=== PATIENT | male | born 1945 | race Caucasian/White ===

== ENCOUNTER 2021-10-24 04:24 | Inpatient (IN) | payer MEDICARE, OTHER ==
[~2021-10-24] VITALS: Ht 188 cm; Wt 98.9 kg
--- NOTE | 2021-10-24 04:35 | NUR ---
TO ER BED 10. BIBPA FROM SNF C/O MORE AMS, TRYING TO ELOPE FROM FACILITY, AND GRESSIVE TOWARDS STAFF. CHANGED INTO GOWN. SITTER WITHIN SIGHT. AWAITING MD CURIEL
--- NOTE | 2021-10-24 04:45 | NUR ---
LAB AT BEDSIDE
--- NOTE | 2021-10-24 04:53 | NUR ---
COVID SWAB COLLECTED AND SENT TO LAB
[2021-10-24 04:55] LABS: BASOPHILS # (AUTO) 0.1 K/uL (0.0-0.2); BASOPHILS % (AUTO) 1.8 % (0.0-2.0); EOSINOPHILS % (AUTO) 7.3 % (0.0-6.0); HEMATOCRIT 38 % (39-51); HEMOGLOBIN 12.4 g/dL (13.5-17.5); LYMPHOCYTES # (AUTO) 2.1 K/uL (0.8-4.8); LYMPHOCYTES % (AUTO) 37.9 % (20.0-44.0); MEAN CORPUSCULAR HGB CONC 33 g/dl (31.0-36.0); MEAN CORPUSCULAR VOLUME 84 fL (80-96); MONOCYTES # (AUTO) 0.4 K/uL (0.1-1.30); MONOCYTES % (AUTO) 8.1 % (2.0-12.0); NEUTROPHILS # (AUTO) 2.5 K/uL (1.8-8.9); NEUTROPHILS % (AUTO) 44.9 % (43.0-81.0); PLATELET COUNT (AUTO) 203 K/uL (150-450); WHITE BLOOD COUNT (AUTO) 5.5 K/uL (4.3-11.0)
[2021-10-24 05:04] LABS: CALCIUM, SERUM 9.4 mg/dL (8.5-10.1); CARBON DIOXIDE 28 mmol/L (21-32); CHLORIDE 104 mmol/L (98-107); CREATININE 1.6 mg/dL (0.6-1.3); GLUCOSE 82 mg/dL (74-106); POTASSIUM 3.4 mmol/L (3.5-5.1); SODIUM SERUM 140 mmol/L (136-145); UREA NITROGEN, BLOOD 24 mg/dL (7-18)
[2021-10-24 05:10] LABS: ALANINE AMINOTRANSFERASE 20 U/L (12-78); ALBUMIN 3.4 g/dL (3.4-5.0); ALCOHOL, BLOOD < 3 mg/dL (0-0); ALKALINE PHOSPHATASE 60 U/L (46-116); ASPARTATE AMINOTRANSFERASE 12 U/L (15-37); BILIRUBIN,DIRECT 0.2 mg/dL (0.0-0.2); BILIRUBIN,TOTAL 0.7 mg/dL (0.2-1.0); TOTAL PROTEIN, SERUM 6.7 g/dL (6.4-8.2)
[2021-10-24 05:11] LABS: ACETAMINOPHEN 0 ug/ml (10-30)
--- NOTE | 2021-10-24 05:29 | NUR ---
URINAL PROVIDED TO PT
--- NOTE | 2021-10-24 05:36 | NUR ---
URINE SAMPLE COLLECTED AND SENT TO LAB
[2021-10-24 06:19] LABS: BILIRUBIN,URINE NEGATIVE (NEGATIVE); COLOR,URINE YELLOW (YELLOW); LEUKOCYTE ESTERASE ,URINE NEGATIVE (NEGATIVE); NITRITE, URINE NEGATIVE (NEGATIVE); PROTEIN,URINE NEGATIVE (NEGATIVE); UGLUCOSE NEGATIVE (NEGATIVE); UROBILINOGEN,URINE 0.2 EU/dL (0.2)
[2021-10-24] MEDS ORDERED: OLANZAPINE 10 MG VIAL IM ONE ×4 (06:25→14:28)
--- NOTE | 2021-10-24 06:33 | NUR ---
PT GOT OUT OF BED AND WAS ATTEMPTING TO LEAVE. PT GOT AGGRESSIVE AND STRIKED AT NURSE WHEN TRYING TO HELP HIM BACK IN BED. PT NOW RESTING IN BED. V/S STABLE. MADE AWARE
--- NOTE | 2021-10-24 09:33 | NUR ---
CALLED PSYCH CLINICIAN RAINE REGARDING PT
--- NOTE | 2021-10-24 10:09 | NUR ---
SS Note: SS consult for pt. who comes from facility after attempting to elope and becoming aggressive with staff per EMR. The pt. is a 76 year old male who comes from [facility] [[address] , [place] [address] ]. SW met with pt. bedside. Pt. is alert & oriented x 1 (self) and confused. Pt. is irritable, and was compliant with questions. Pt. stated he believes he lives in his apartment and stated he is from his , Jaxson Cannon [phone] and wants to go home. Applications Systems Analyst, [employer] [phone] was notified to evaluate this patient. SW will be available as needed.
--- NOTE | 2021-10-24 10:36 | NUR ---
RAINE CALLED REGARDING PT AND WAS NOTIFIED OF PT STATUS. ALSO PT WILL BE SEEN ONCE LAMINATION OPERATOR IS FINISHED WITH "FIRE SAFETY CLASS"
--- NOTE | 2021-10-24 12:30 | NUR ---
CALL BACK FROM Marjorie JOEL LCSW, COMING TO SEE PATIENT
--- NOTE | 2021-10-24 14:00 | NUR ---
RN-ADMISSION NOTES ADMITTED 76 Y.O MALE PATIENT FROM [facility] ER. PATIENT IS UNDER THE CARE OF DR. ARREAGA ( PSYCHIATRIST) DR. OHARA ( MUSIC THERAPIST) BOTH MD MADE AWARE OF THE ADMISSION. PATIENT ARRIVED IN THE UNIT VIA HOSPITAL BED ACCOMPANIED BY TWO TWO ER STAFF. PATIENT IS AWAKE,A/O X1,GUARDED. UPON FACE TO FACE ASSESSMENT WITH THE PATIENT ,PATIENT IS CONFUSED POOR HISTORIAN UNABLE TO GIVE INFORMATIONS AND UNABLE TO FOCUS ON CONVERSATIONS,SOME INFORMATIONS WAS OBTAINED FROM MEDICAL RECORDS FROM THE FACILITY AND FAMILY. PATIENT REFUSED SKIN ASSESSMENT AND FACE PHOTO TAKEN . PATIENT NEEDS MINIMAL ASSIST WITH ADL'S . PATIENT ON 5250 HOLD FOR DTO AND GD. PER HOLD PATIENT ELOPE THE FACILITY AND AGGRESSIVE TO THE STAFF AT THE FACILITY . PATIENT'S RIGHT BOOKLET WAS GIVEN TO THE PATIENT.ANDRES TORRES [phone] ( [place]) MADE AWARE ON THE ADMISSION.ALL NEEDS ATTENDED AND ANTICIPATED. WILL CONT. MONITORING FOR SAFETY AND BEHAVIOR. Addendum: 10/24/21 at 1914 by KELLY SLOAN RN EXACT ADMISSION TIME PATIENT ARRIVED IN THE UNIT WAS 1445.
[2021-10-24] MEDS ORDERED: BUPR150T10 PO (14:15)
[2021-10-24] MEDS ORDERED: ASCO500C17 PO (14:15)
[2021-10-24] MEDS ORDERED: MAGN400O6 PO (14:15)
[2021-10-24] MEDS ORDERED: FAMO20TA80 PO (14:15)
[2021-10-24] MEDS ORDERED: BISA10SU11 RC (14:15)
[2021-10-24] MEDS ORDERED: POLY17PO4 PO (14:15)
[2021-10-24] MEDS ORDERED: DOCU-141 PO (14:15)
[2021-10-24] MEDS ORDERED: MULT-447 PO (14:15)
[2021-10-24] MEDS ORDERED: NA P133E RC (14:15)
[2021-10-24] MEDS ORDERED: TAMS-12 PO (14:15)
[2021-10-24] MEDS ORDERED: BACL10TA PO (14:15)
[2021-10-24] MEDS ORDERED: BENZ2AMP PO (14:15)
[2021-10-24] MEDS ORDERED: ACET325T53 PO (14:15)
[2021-10-24] MEDS ORDERED: POTA10TA21 PO (14:15)
[2021-10-24] MEDS ORDERED: SENN-175 PO (14:15)
[2021-10-24] MEDS ORDERED: APIX5TAB PO (14:15)
[2021-10-24] MEDS ORDERED: FURO-144 PO (14:15)
[2021-10-24] MEDS ORDERED: METO25TA6 PO (14:15)
--- NOTE | 2021-10-24 14:45 | NUR ---
TRANSFERRED TO GPS BED 212 IN STABLE CONDITION
--- NOTE | 2021-10-24 14:52 | NUR ---
REPORT GIVEN TO NURSE HERNÁNDEZ FOR DORYS
[2021-10-24] MEDS ORDERED: ACETAMINOPHEN 325 MG TABLET PO PRN (15:00)
[2021-10-24] MEDS ORDERED: MAG HYDROX/AL HYDROX/SIMETH 30 ML UDC PO PRN (15:00)
[2021-10-24] MEDS ORDERED: MAGNESIUM HYDROXIDE 30 ML UDC PO PRN ×2 (15:00→23:30)
[2021-10-24] MEDS ORDERED: BLOOD SUGAR DIAGNOSTIC 1 EACH STRIP IN ONE (15:00)
[2021-10-24 16:00] VITALS: BP 145/83
--- NOTE | 2021-10-24 19:15 | NUR ---
RN notes Received Pt from morning nurse. Pt is sitting at the bedside comfortably. Pt is alert and orientedX1,anxious,confused, uncooperative and unable to focus on conversation. On room air. No SOB. No S/s of distress noted. Snacks is provided. Reality orientation is provided. Safety precautions is maintained all the time. Will continue to monitor for behavior and safety and continue to monitor Q 15 mins checks per hospital protocol.
[2021-10-24 20:13] VITALS: BP 129/66
[2021-10-24] MEDS: LORAZEPAM 0.5 MG TABLET PO PRN (21:01)
--- NOTE | 2021-10-24 21:05 | NUR ---
RN notes Pt is feeling anxious. Administered ativan 1mg/1 tab/po/prn as ordered for anxiety. VS is stable. safety precautions is maintained all the time. will continue to monitor.
[2021-10-24] MEDS ORDERED: ZOLPIDEM TARTRATE 5 MG TABLET PO PRN (21:30)
[2021-10-24] MEDS: risperiDONE 1 MG TABLET PO SCH (21:30)
--- NOTE | 2021-10-24 21:32 | NUR ---
GPS RN NOTE, PATIENT NEEDS A MEDICATION RECONCILIATION. PAGED [facility] AND INFORMED DR MIRA GONZALES OF MY FINDINGS. DR MIRA GONZALES STATED, " OK I WILL DO IT WHEN I HAVE A MOMENT. ALL ORDERS NOTED AND CARRIED OUT. WILL CONTINUE TO MONITOR THIS PATIENT WITH THE HELP OF STAFF.
--- NOTE | 2021-10-24 21:51 | NUR ---
RN notes Pt refused risperdal med despites explained risks and benefits. returned med to [facility]. charge nurse is aware and informed. will continue to monitor.
--- NOTE | 2021-10-24 22:10 | NUR ---
GPS RN NOTE, PATIENT DELUSIONAL STATING, " YOU KILLED MY AND YOU DESERVE TO ". PATIENT PUSHED WALKER TOWARD STAFF IN A THREATENING MANOR. PATIENT ASSISTED TO A SENDY CHAIR WITH THE HELP OF STAFF. PATIENT REDIRECTED AGAIN AND GIVEN APPLE JUICE. WILL CONTINUE TO MONITOR THIS PATIENT WITH THE HELP OF STAFF.
[2021-10-24] MEDS ORDERED: BISACODYL SUPP (10 MG) 10 MG/SUPP.RECT SUPP.RECT RC PRN (23:30)
[2021-10-24] MEDS ORDERED: NA PHOS,M-B/NA PHOS,DI-BA 1 EA ENEMA RC PRN (23:30)
--- NOTE | 2021-10-25 00:07 | NUR ---
GPS RN NOTE, PATIENT IS CONFUSED, INCOHERENT, DELUSIONAL, AGITATED, AGGRESSIVE, YELLING, AND STRIKING OUT AT STAFF. LESS RESTRICTIVE MEASURES ATTEMPTED IE DIVERSION, 1 TO 1 INTERACTION, AND REORIENTATION WAS TRIED WITH NO POSITIVE EFFECT. PAGED DR ARREAGA AND INFORMED HIM OF MY FINDINGS. DR ARREAGA ORDERED HALDOL 5MG IM ONCE, ATIVAN 1MG IM ONCE, AND BENADRYL 25MG IM ONCE . GIVEN AFOREMENTIONED MEDICATION IN HER RIGHT VENTROGLUTEAL WITH THE HELP OF STAFF AND SECURITY. PATIENT TOLERATE PROCEDURE WELL. ALL ORDERS NOTED AND CARRIED OUT WILL CONTINUE TO MONITOR THE PATIENT.
[2021-10-25] MEDS ORDERED: LORAZEPAM INJ 2 MG/ML VIAL IM ONE (00:30)
[2021-10-25] MEDS ORDERED: diphenhydrAMINE HCL 50 MG/ML VIAL IM ONE (00:30)
[2021-10-25] MEDS ORDERED: HALOPERIDOL LACTATE INJ 5 MG/ML VIAL IM ONE (00:30)
[2021-10-25 08:00] VITALS: BP 136/79
[2021-10-25] MEDS: POLYETHYLENE GLYCOL 3350 17 GM POWD.PACK PO SCH ×2 (09:00→17:00)
[2021-10-25] MEDS: FAMOTIDINE (20 MG) 20 MG TABLET PO SCH (09:00)
[2021-10-25] MEDS: RIVASTIGMINE TARTRATE 1.5 MG CAPSULE PO SCH ×2 (09:00→17:24)
[2021-10-25] MEDS: DOCUSATE SODIUM 100 MG CAPSULE PO SCH ×2 (09:00→17:24)
[2021-10-25] MEDS: MULTIVITAMINS,THERAGRAN 1 UDTAB TABLET PO SCH (09:00)
[2021-10-25] MEDS: METOPROLOL TARTRATE 25 MG TABLET PO SCH ×2 (09:00→21:22)
[2021-10-25] MEDS: APIXABAN 5 MG TABLET PO SCH ×2 (09:00→17:29)
[2021-10-25] MEDS: BACLOFEN (10 MG) 10 MG TABLET PO SCH ×2 (09:00→17:24)
[2021-10-25] MEDS: risperiDONE 1 MG TABLET PO SCH ×2 (09:00→21:22)
[2021-10-25] MEDS: FUROSEMIDE 40 MG TABLET PO SCH (09:00)
[2021-10-25 12:41] LABS: ALANINE AMINOTRANSFERASE 17 U/L (12-78); ALBUMIN 3.3 g/dL (3.4-5.0); ALKALINE PHOSPHATASE 52 U/L (46-116); ASPARTATE AMINOTRANSFERASE 15 U/L (15-37); BILIRUBIN,TOTAL 0.8 mg/dL (0.2-1.0); CARBON DIOXIDE 27 mmol/L (21-32); CHLORIDE 105 mmol/L (98-107); CREATININE 1.6 mg/dL (0.6-1.3); GLUCOSE 86 mg/dL (74-106); POTASSIUM 3.2 mmol/L (3.5-5.1); SODIUM SERUM 140 mmol/L (136-145); TOTAL PROTEIN, SERUM 6.4 g/dL (6.4-8.2); UREA NITROGEN, BLOOD 22 mg/dL (7-18)
[2021-10-25 12:42] LABS: CHOLESTEROL 143 mg/dL (<200); HDL CHOLESTEROL 37 mg/dL (40-60); LDL 91 mg/dL (0-99); TRIGLYCERIDES 87 mg/dL (30-150)
--- NOTE | 2021-10-25 13:40 | NUR ---
GPS/RN PT IS SLEEPING NO ACUTE DISTRESS NOTED. HARD TO AROUSE. FEW ATTEMPTS MADE TO AWAKE AND TO MEDICATE. PT BREATHING IS EVEN AND UNLABORED. WILL CONTINUE TO MONITOR.
[2021-10-25 16:00] VITALS: BP 137/70
--- NOTE | 2021-10-25 16:15 | NUR ---
GPS/RN PT JUST WOKE UP . HAS NO RECOLLECTIONS OF PRIOR EVENTS. FOOD, APPLE JUICE OFFERED. PT IS AMBULATORY IN NO DISTRESS
--- NOTE | 2021-10-25 19:24 | NUR ---
GPS RN NOTE, RECEIVED PATIENT AWAKE AND IN BED, NO S/S OR COMPLAINTS OF PAIN AT THIS TIME. PATIENT IS DISPLAYING NO S/S OF APPARENT DISTRESS AT THIS TIME. PATIENT BREATHING IS UNLABORED WITH EQUAL RISE AND FALL OF THE CHEST. PATIENT IS ALERT AND ORIENTED X 1 ON ROOM AIR WITH A SPO2 94%. PATIENT IS COMPLIANT WITH MEDICATIONS, ANXIOUS, PARANOID, EASILY IRRITABLE, NEEDS REDIRECTION, DELUSIONAL, AND UNCOOPERATIVE. PATIENT DENIES SUICIDAL AND HOMICIDAL IDEATIONS AT THIS TIME. PATIENT ASSISTED WITH TURNING AND REPOSITIONING Q2HR AND PRN FOR COMFORT AND CIRCULATION. PATIENT HAS NO NEEDS AT THIS TIME. PATIENT EDUCATED ON THE USE OF THE CALL JENNINGS. PATIENT BED SIDE RAILS UP X 2 FOR SAFETY. PATIENT BED IS LOCKED, LOW, WITH BED ALARM ON. WILL CONTINUE TO MONITOR THIS PATIENT Q15 MINUTES WITH THE HELP OF STAFF TO MAINTAIN SAFETY.
[2021-10-25 20:16] VITALS: BP_SYST 109; BP_SYST 137; BP_DIAS 60; BP_DIAS 78
[2021-10-25] MEDS: TAMSULOSIN 0.4 MG CAP.SR.24H PO SCH (21:21)
[2021-10-25] MEDS: SENNOSIDES 8.6 MG TABLET PO SCH (21:22)
[2021-10-25] MEDS: ZOLPIDEM TARTRATE 5 MG TABLET PO PRN (21:23)
--- NOTE | 2021-10-25 21:23 | NUR ---
GPS RN NOTE, PATIENT HAS A COMPLAINT OF NOT BEING ABLE TO SLEEP AND IS REQUESTING AMBIEN AT THIS TIME. PATIENT VITAL SIGNS ARE STABLE. GAVE AMBIEN 5MG PO HS PRN ORDERED. WILL REASSESS FOR INSOMNIA AND I WILL CONTINUE TO MONITOR THIS PATIENT WITH THE HELP OF STAFF.
[2021-10-26] MEDS: LORAZEPAM 0.5 MG TABLET PO PRN (06:36)
--- NOTE | 2021-10-26 06:36 | NUR ---
GPS RN NOTE, PATIENT HAS A COMPLAINT OF FEELING ANXIOUS AND IS REQUESTING ATIVAN AT THIS TIME. PATIENT VITAL SIGNS ARE STABLE. GAVE ATIVAN 1MG PO Q4HR PRN ORDERED. WILL REASSESS ANXIETY AND I WILL CONTINUE TO MONITOR THIS PATIENT WITH THE HELP OF STAFF.
[2021-10-26 08:00] VITALS: BP 124/74
[2021-10-26] MEDS: FAMOTIDINE (20 MG) 20 MG TABLET PO SCH (09:12)
[2021-10-26] MEDS: POLYETHYLENE GLYCOL 3350 17 GM POWD.PACK PO SCH ×2 (09:12→17:53)
[2021-10-26] MEDS: RIVASTIGMINE TARTRATE 1.5 MG CAPSULE PO SCH ×2 (09:12→17:53)
[2021-10-26] MEDS: DOCUSATE SODIUM 100 MG CAPSULE PO SCH ×2 (09:12→17:55)
[2021-10-26] MEDS: APIXABAN 5 MG TABLET PO SCH ×2 (09:13→17:54)
[2021-10-26] MEDS: MULTIVITAMINS,THERAGRAN 1 UDTAB TABLET PO SCH (09:14)
[2021-10-26] MEDS: risperiDONE 1 MG TABLET PO SCH ×2 (09:15→20:54)
[2021-10-26] MEDS: FUROSEMIDE 40 MG TABLET PO SCH (09:15)
[2021-10-26] MEDS: METOPROLOL TARTRATE 25 MG TABLET PO SCH ×2 (09:15→20:54)
[2021-10-26] MEDS: BACLOFEN (10 MG) 10 MG TABLET PO SCH ×2 (09:16→17:54)
[2021-10-26 16:00] VITALS: BP 132/72
--- NOTE | 2021-10-26 19:25 | NUR ---
GPS RN NOTES RECEIVED PATIENT IN THE DINING ROOM SITTING IN A CHAIR. ALERT AND ORIENTED X1, NO S/S OF ACUTE DISTRESS NOTED. PATIENT REMAINS CONFUSED, ANXIOUS, RESTLESS, COOPERATIVE TO CARE, MED COMPLIANT. REORIENTATION PROVIDED. NO AGITATION NOTED. SAFETY PRECAUTIONS IN PLACE. WILL CONTINUE TO MONITOR Q15MIN ROUNDS FOR SAFETY AND BEHAVIOR.
--- NOTE | 2021-10-26 20:00 | NUR ---
GPS RN NOTES PATIENT REFUSED WEEKLY SKIN BODY ASSESSMENT.
[2021-10-26 20:49] VITALS: BP 125/75
[2021-10-26] MEDS: SENNOSIDES 8.6 MG TABLET PO SCH (21:01)
[2021-10-26] MEDS: TAMSULOSIN 0.4 MG CAP.SR.24H PO SCH (21:01)
[2021-10-26] MEDS: ZOLPIDEM TARTRATE 5 MG TABLET PO PRN ×2 (22:06→22:59)
[2021-10-27 08:00] VITALS: BP 142/69
[2021-10-27] MEDS: FUROSEMIDE 40 MG TABLET PO SCH (08:06)
[2021-10-27] MEDS: RIVASTIGMINE TARTRATE 1.5 MG CAPSULE PO SCH ×2 (08:06→17:13)
[2021-10-27] MEDS: risperiDONE 1 MG TABLET PO SCH ×2 (08:06→21:17)
[2021-10-27] MEDS: DOCUSATE SODIUM 100 MG CAPSULE PO SCH ×2 (08:06→17:13)
[2021-10-27] MEDS: POLYETHYLENE GLYCOL 3350 17 GM POWD.PACK PO SCH ×2 (08:07→17:13)
[2021-10-27] MEDS: MULTIVITAMINS,THERAGRAN 1 UDTAB TABLET PO SCH (08:07)
[2021-10-27] MEDS: BACLOFEN (10 MG) 10 MG TABLET PO SCH ×2 (08:07→17:13)
[2021-10-27] MEDS: METOPROLOL TARTRATE 25 MG TABLET PO SCH ×2 (08:08→21:18)
[2021-10-27] MEDS: APIXABAN 5 MG TABLET PO SCH ×2 (08:27→17:22)
[2021-10-27] MEDS: LORAZEPAM 0.5 MG TABLET PO PRN (08:52)
--- NOTE | 2021-10-27 09:25 | NUR ---
PIEDAD Initial Discharge: Pt currently resides at [facility] [address] [place], [place]; ([phone]). PIEDAD reached out to Nicole Smyther if pt can return back or not. Nicole will let this commercial lines underwriter know if pt can return back or not. PIEDAD will work with the MD and treatment team to help coordinate appropriate dc.
--- NOTE | 2021-10-27 09:25 | NUR ---
PIEDAD Admit Source: Pt placed on a 5150 hold for danger to others and GD. Pt from [facility]. He was aggressive at his facility. Pt currently resides at [address]; ([phone]). PIEDAD reached out to Nicole Video Game Producer if pt can return back or not. Nicole will let this com writer know if pt can return back or not.
--- NOTE | 2021-10-27 10:41 | NUR ---
SNF Contact: SW received a call back from Nicole turner ([phone]) who stated they cannot accept pt back because staff is unable to take care of pt.
[2021-10-27] MEDS: FAMOTIDINE (20 MG) 20 MG TABLET PO SCH (10:47)
--- NOTE | 2021-10-27 11:16 | NUR ---
PIEDAD Family Contact: SW contacted pt's ex- Caitlyn ([phone]) to discuss discharge and treatment plan. stated that she is the DPOA and the daughter Amber ([phone]). She stated she will send the DPOA paperworks. PIEDAD notified that [facility] is not able to take pt back. She was agreeable of this scientific writer to find pt a placement.
[2021-10-27] MEDS: POTASSIUM CHLORIDE 20 MEQ TAB.PRT.SR PO SCH (12:38)
[2021-10-27 16:00] VITALS: BP 132/73
--- NOTE | 2021-10-27 19:07 | NUR ---
RN NOTES RECEIVED PATIENT IN [address] IN A SENDY - CHAIR. ALERT AND ORIENTED X1, NO SOB NOTED, NO S/S OF ACUTE DISTRESS NOTED. PATIENT REMAINS CONFUSED, ANXIOUS, RESTLESS, COOPERATIVE TO CARE, MEDICATION COMPLIANT. RE-ORIENTATION PROVIDED. AGITATION NOTED DURING BRIEF CHANGES AND DARRELL CARE, OTHER THAN THOSE TIMES PT WAS REDIRECTED AND EASILY CALMED DOWN FROM ANXIETY AND AGITATION, ATE MEALS WITH SOME ASSISTANCE, SAFETY PRECAUTIONS IN PLACE. WILL CONTINUE TO MONITOR Q15MIN ROUNDS FOR SAFETY AND BEHAVIOR.
[2021-10-27 19:46] VITALS: BP 129/69
[2021-10-27] MEDS: TAMSULOSIN 0.4 MG CAP.SR.24H PO SCH (21:17)
[2021-10-27] MEDS: SENNOSIDES 8.6 MG TABLET PO SCH (21:18)
[2021-10-27] MEDS: ZOLPIDEM TARTRATE 5 MG TABLET PO PRN (23:52)
[2021-10-28] MEDS: LORAZEPAM 0.5 MG TABLET PO PRN (02:37)
[2021-10-28 06:55] LABS: BASOPHILS # (AUTO) 0.1 K/uL (0.0-0.2); BASOPHILS % (AUTO) 0.9 % (0.0-2.0); HEMATOCRIT 40 % (39-51); HEMOGLOBIN 12.9 g/dL (13.5-17.5); LYMPHOCYTES # (AUTO) 1.1 K/uL (0.8-4.8); LYMPHOCYTES % (AUTO) 18.2 % (20.0-44.0); MEAN CORPUSCULAR HGB CONC 32 g/dl (31.0-36.0); MEAN CORPUSCULAR VOLUME 85 fL (80-96); MONOCYTES # (AUTO) 0.5 K/uL (0.1-1.30); MONOCYTES % (AUTO) 8.5 % (2.0-12.0); NEUTROPHILS # (AUTO) 4.1 K/uL (1.8-8.9); NEUTROPHILS % (AUTO) 67.4 % (43.0-81.0); PLATELET COUNT (AUTO) 229 K/uL (150-450); RED BLOOD CELL COUNT(AUTO) 4.72 MIL/uL (4.5-6.0); WHITE BLOOD COUNT (AUTO) 6.1 K/uL (4.3-11.0)
[2021-10-28 07:16] LABS: CALCIUM, SERUM 9.8 mg/dL (8.5-10.1); CARBON DIOXIDE 26 mmol/L (21-32); CHLORIDE 101 mmol/L (98-107); CREATININE 1.6 mg/dL (0.6-1.3); GLUCOSE 104 mg/dL (74-106); MAGNESIUM 2.4 mg/dL (1.8-2.4); PHOSPHORUS 3.9 mg/dL (2.5-4.9); SODIUM SERUM 139 mmol/L (136-145); UREA NITROGEN, BLOOD 23 mg/dL (7-18)
[2021-10-28 08:00] VITALS: BP 144/76
[2021-10-28] MEDS: FAMOTIDINE (20 MG) 20 MG TABLET PO SCH (08:30)
[2021-10-28] MEDS: DOCUSATE SODIUM 100 MG CAPSULE PO SCH ×2 (08:30→16:47)
[2021-10-28] MEDS: POTASSIUM CHLORIDE 20 MEQ TAB.PRT.SR PO SCH (08:30)
[2021-10-28] MEDS: METOPROLOL TARTRATE 25 MG TABLET PO SCH ×2 (08:31→21:21)
[2021-10-28] MEDS: MULTIVITAMINS,THERAGRAN 1 UDTAB TABLET PO SCH (08:31)
[2021-10-28] MEDS: risperiDONE 1 MG TABLET PO SCH ×2 (08:31→21:20)
[2021-10-28] MEDS: FUROSEMIDE 40 MG TABLET PO SCH (08:31)
[2021-10-28] MEDS: RIVASTIGMINE TARTRATE 1.5 MG CAPSULE PO SCH ×2 (08:31→16:47)
[2021-10-28] MEDS: POLYETHYLENE GLYCOL 3350 17 GM POWD.PACK PO SCH ×2 (08:32→16:46)
[2021-10-28] MEDS: BACLOFEN (10 MG) 10 MG TABLET PO SCH ×2 (08:32→16:47)
[2021-10-28] MEDS: APIXABAN 5 MG TABLET PO SCH ×2 (08:33→16:47)
--- NOTE | 2021-10-28 12:27 | NUR ---
RN-CO: Patient is asleep, respiration even and unlabored. Skin warm and dry to touch. Lips are pink and moist.I will continue to monitor.
--- NOTE | 2021-10-28 13:39 | NUR ---
RN-CO: Patient is asleep, respiration even and unlabored. Skin warm and dry to touch. Lips are pink and moist.I will continue to monitor. Ativan was given by night guardnight filler at 0239 am and Ambien was given at 1237 am.
[2021-10-28 16:00] VITALS: BP 132/75
--- NOTE | 2021-10-28 19:29 | NUR ---
GPS RN OPENING NOTES: RECEIVED PATIENT IN HALLWAY SITTING IN SENDY CHAIR FOR SAFETY, AWAKE, A/O X1. BLUNTED AFFECT, DISORGANIZED, CONFUSED, PASSIVE, CALM. NO S/S OF DISTRESS. RESPIRATION EVEN AND UNLABORED WITH EQUAL RISE AND FALL OF THE CHEST, ON ROOM AIR. OFFERED FLUID AND SNACKS TOLERATED. WILL CONTINUE TO MONITOR Q15 FOR MOOD, SAFETY AND BEHAVIOR.
[2021-10-28 19:39] VITALS: BP 137/70
[2021-10-28] MEDS: TAMSULOSIN 0.4 MG CAP.SR.24H PO SCH (21:20)
[2021-10-28] MEDS: SENNOSIDES 8.6 MG TABLET PO SCH (21:22)
--- NOTE | 2021-10-28 21:33 | NUR ---
GPS RN NOTES: RISPERDAL 0.5MG WASTED PER PARTIAL DOSE ORDER. PATIENT IS COMPLIANT WITH ALL MEDICATIONS THIS SHIFT.
[2021-10-28] MEDS: ZOLPIDEM TARTRATE 5 MG TABLET PO PRN (22:30)
--- NOTE | 2021-10-28 22:35 | NUR ---
GPS RN NOTES: AMBIEN 5MG GIVEN PO FOR SLEEP AT 2230. WILL CONTINUE TO MONITOR.
[2021-10-29] MEDS: LORAZEPAM 0.5 MG TABLET PO PRN ×3 (03:57→21:00)
--- NOTE | 2021-10-29 04:04 | NUR ---
GPS RN NOTES: Patient is restless and anxious. Ativan 1mg given PO at 0357. Will continue to monitor.
--- NOTE | 2021-10-29 06:59 | NUR ---
GPS RN CLOSING NOTES: PATIENT IS AWAKE, A/O X1. PATIENT SLEPT 4HRS THIS SHIFT. NO S/S OF DISTRESS NOTED. RESPIRATION EVEN AND UNLABORED WITH EQUAL RISE AND FALL OF THE CHEST, ON ROOM AIR. ALL PATIENT CARE NEEDS HAVE BEEN MET ANTICIPATED. BED IN LOW LOCKED POSITION, SIDE RAILS UP X2 FOR SAFETY. CALL JENNINGS WITHIN REACH. WILL CONTINUE TO MONITOR AND ENDORSE TO AM SHIFT.
[2021-10-29 08:00] VITALS: BP 119/55
[2021-10-29] MEDS: FAMOTIDINE (20 MG) 20 MG TABLET PO SCH (08:39)
[2021-10-29] MEDS: risperiDONE 1 MG TABLET PO SCH ×2 (08:39→21:49)
[2021-10-29] MEDS: POLYETHYLENE GLYCOL 3350 17 GM POWD.PACK PO SCH ×2 (08:39→16:15)
[2021-10-29] MEDS: RIVASTIGMINE TARTRATE 1.5 MG CAPSULE PO SCH ×2 (08:39→16:16)
[2021-10-29] MEDS: MULTIVITAMINS,THERAGRAN 1 UDTAB TABLET PO SCH (08:39)
[2021-10-29] MEDS: FUROSEMIDE 40 MG TABLET PO SCH (08:39)
[2021-10-29] MEDS: DOCUSATE SODIUM 100 MG CAPSULE PO SCH ×2 (08:40→16:16)
[2021-10-29] MEDS: METOPROLOL TARTRATE 25 MG TABLET PO SCH ×2 (08:40→21:51)
[2021-10-29] MEDS: POTASSIUM CHLORIDE 20 MEQ TAB.PRT.SR PO SCH (08:40)
[2021-10-29] MEDS: BACLOFEN (10 MG) 10 MG TABLET PO SCH ×2 (08:40→16:16)
[2021-10-29] MEDS: APIXABAN 5 MG TABLET PO SCH ×2 (08:41→16:17)
--- NOTE | 2021-10-29 09:53 | NUR ---
RN-CO: PATIENT DENIED PAIN AND DISCOMFORTS, TOOK HIS AM MEDICATIONS. HE REMAINS THE SAME SINCE ADMISSION. HOWEVER HE IS COOPERATIVE TO CARE AND COMPLIANT WITH MEDICATIONS. NO REPORT OF HITTING ANYBODY IN THE UNIT. I WILL OFFER FLUIDS, GIVE GOOD PERIC ARE AND MONITOR FOR SAFETY.
[2021-10-29] MEDS ORDERED: DIPHENHYDRAMINE HCL 12.5 MG/5 ML UDC PO PRN (11:30)
--- NOTE | 2021-10-29 11:47 | NUR ---
RN-CO: NOTIFIED JAYNE STEVEN NP RE: PT C/O OF BACK ITCH. ORDERED BENADRYL PRN AND HYDROCORTISONE CREAM NOTED AND CARRIED OUT.
[2021-10-29] MEDS: diphenhydrAMINE HCL ELIX 25 MG/10 ML UDC PO PRN ×2 (11:52→20:58)
--- NOTE | 2021-10-29 12:48 | NUR ---
SNF Referral: SW sent clinicals to [facility] ([phone]) to yue oCello for placement. SW sent H & P, progress notes, and medication list.
--- NOTE | 2021-10-29 15:42 | NUR ---
Individual Counseling: SW met with pt. at bedside. Pt. was sitting in errol chair and is confused. Pt. is not able to engage in meaningful conversation. Pt. is not appropriate for counseling at this time. SW will monitor pt.'s ability to participate in therapeutic milieu.
[2021-10-29 16:00] VITALS: BP 145/54
[2021-10-29] MEDS: HYDROCORTISONE 1% CREAM 28.35 GM TUBE TP SCH (16:20)
--- NOTE | 2021-10-29 16:37 | NUR ---
RN-CO: ATIVAN GIVEN FOR RESTLESSNESS AND AGITATION.
[2021-10-29 20:00] VITALS: BP 132/89
--- NOTE | 2021-10-29 20:00 | NUR ---
GPS RN OPENING NOTES: RECEIVED PATIENT IN HALLWAY SITTING IN SENDY CHAIR, AWAKE, A/O X1. FLAT AFFECT, DISORGANIZED, CONFUSED, PASSIVE, CALM. DENIES PAIN. NO S/S OF DISTRESS. RESPIRATION EVEN AND UNLABORED WITH EQUAL RISE AND FALL OF THE CHEST, ON ROOM AIR. OFFERED FLUID AND SNACKS TOLERATED. WILL CONTINUE TO MONITOR Q15 FOR MOOD, SAFETY AND BEHAVIOR.
--- NOTE | 2021-10-29 20:59 | NUR ---
GPS RN NOTES: PATIENT C/O ITCHINESS. BENADRYL 25MG/10ML GIVEN PO AT 2057. WILL CONTINUE TO MONITOR.
--- NOTE | 2021-10-29 21:01 | NUR ---
GPS RN NOTES: Patient is restless and anxious. Ativan 1mg given PO at 2100. Will continue to monitor.
[2021-10-29] MEDS: TAMSULOSIN 0.4 MG CAP.SR.24H PO SCH (21:48)
[2021-10-29] MEDS: SENNOSIDES 8.6 MG TABLET PO SCH (21:49)
--- NOTE | 2021-10-29 21:55 | NUR ---
GPS RN NOTES: RISPERDAL 0.5MG WASTED PER PARTIAL DOSE ORDER. PATIENT IS COMPLIANT WITH ALL MEDICATIONS.
[2021-10-30] MEDS: ZOLPIDEM TARTRATE 5 MG TABLET PO PRN (00:01)
--- NOTE | 2021-10-30 00:14 | NUR ---
GPS RN NOTES: AMBIEN 5MG GIVEN PO FOR SLEEP AT 0001. WILL CONTINUE TO MONITOR.
[2021-10-30 08:00] VITALS: BP 137/73
[2021-10-30] MEDS: FUROSEMIDE 40 MG TABLET PO SCH (09:10)
[2021-10-30] MEDS: RIVASTIGMINE TARTRATE 1.5 MG CAPSULE PO SCH ×2 (09:10→16:29)
[2021-10-30] MEDS: BACLOFEN (10 MG) 10 MG TABLET PO SCH ×2 (09:10→16:29)
[2021-10-30] MEDS: DOCUSATE SODIUM 100 MG CAPSULE PO SCH ×2 (09:10→16:29)
[2021-10-30] MEDS: POTASSIUM CHLORIDE 20 MEQ TAB.PRT.SR PO SCH (09:10)
[2021-10-30] MEDS: risperiDONE 1 MG TABLET PO SCH ×2 (09:10→21:01)
[2021-10-30] MEDS: MULTIVITAMINS,THERAGRAN 1 UDTAB TABLET PO SCH (09:10)
[2021-10-30] MEDS: FAMOTIDINE (20 MG) 20 MG TABLET PO SCH (09:10)
[2021-10-30] MEDS: APIXABAN 5 MG TABLET PO SCH ×2 (09:12→16:31)
[2021-10-30] MEDS: POLYETHYLENE GLYCOL 3350 17 GM POWD.PACK PO SCH ×2 (09:13→16:53)
[2021-10-30] MEDS: METOPROLOL TARTRATE 25 MG TABLET PO SCH ×2 (09:14→21:01)
[2021-10-30] MEDS: HYDROCORTISONE 1% CREAM 28.35 GM TUBE TP SCH ×2 (09:14→16:31)
--- NOTE | 2021-10-30 11:33 | NUR ---
Court Hearing Notification: SW contacted pt's ex- Caitlyn ([phone]) and left a voicemail of pt's 5386 hearing today.
--- NOTE | 2021-10-30 13:07 | NUR ---
PIEDAD Family Contact: SW contacted pt's ex- Jaxson ([phone]) and discussed placement. PIEDAD stated that pt is accepted at [facility]. She is agreeable.
[2021-10-30] MEDS: diphenhydrAMINE HCL ELIX 25 MG/10 ML UDC PO PRN (14:01)
--- NOTE | 2021-10-30 14:14 | NUR ---
Court Hearing: Patient's court hearing for 8650 was today and it was upheld for GD.
[2021-10-30 16:00] VITALS: BP 105/62
[2021-10-30 20:00] VITALS: BP 145/74
[2021-10-30] MEDS: TAMSULOSIN 0.4 MG CAP.SR.24H PO SCH (21:01)
[2021-10-30] MEDS: SENNOSIDES 8.6 MG TABLET PO SCH (21:02)
--- NOTE | 2021-10-30 22:20 | NUR ---
RN NOTES: PATIENT EASILY IRRITABLE, CONFUSED, DISORGANIZED, PARANOID, COMPLIANT WITH NIGHT MEDS . NO S/S OF DISTRESS. SAFETY PRECAUTIONS IN PLACED , ENCOURAGED PT. TO VERBALIZED ANY FEELING OR CONCERN. ALL NEEDS ATTENDED AND ANTICIPATED, WILL CONTINUE TO MONITOR Q15 FOR MOOD, SAFETY AND BEHAVIOR.
[2021-10-30] MEDS: LORAZEPAM 0.5 MG TABLET PO PRN (22:40)
--- NOTE | 2021-10-30 22:43 | NUR ---
RN NOTES: ANXIETY PT. NOTED VERY ANXIOUS, PARANOID ,RESTLESS , NONREDIRECTABLE, REFUSED TO STAYING IN BED,PRN ATIVAN I MG PO GIVEN PER PT. REQUEST, WILL CONTINUE TO MONITOR.
--- NOTE | 2021-10-31 00:56 | NUR ---
RN NOTES: PT. REFUSED BODY SKIN ASSESSMENT , PT. ANXIOUS EASILY AGITATED, PARANOID , UNCOOPERTIVE , ENCOURAGED X3 RISKS BENEFITS EXPLINED , PT. STRONGLY REFUSED , WILL CONTINUITY WITH CARE.
[2021-10-31 08:00] VITALS: BP 131/76
[2021-10-31] MEDS: HYDROCORTISONE 1% CREAM 28.35 GM TUBE TP SCH ×2 (08:27→17:18)
[2021-10-31] MEDS: MULTIVITAMINS,THERAGRAN 1 UDTAB TABLET PO SCH (08:30)
[2021-10-31] MEDS: POLYETHYLENE GLYCOL 3350 17 GM POWD.PACK PO SCH ×2 (08:30→17:21)
--- NOTE | 2021-10-31 08:30 | NUR ---
RECEIVED PATIENT RESTING IN THE ROOM NO S/S DISTRESS NOTED AT THIS TIME DENIES SI/HI AVH. DENIED PAIN AND DISCOMFORTS.ALL NEEDS ATTENDED AND ANTICIPATED. WILL CONTINUE MONITORING FOR SAFETY AND BEHAVIOR Q 15 MIN
[2021-10-31] MEDS: FAMOTIDINE (20 MG) 20 MG TABLET PO SCH (08:31)
[2021-10-31] MEDS: FUROSEMIDE 40 MG TABLET PO SCH (08:31)
[2021-10-31] MEDS: DOCUSATE SODIUM 100 MG CAPSULE PO SCH ×2 (08:31→17:20)
[2021-10-31] MEDS: BACLOFEN (10 MG) 10 MG TABLET PO SCH ×2 (08:31→17:20)
[2021-10-31] MEDS: RIVASTIGMINE TARTRATE 1.5 MG CAPSULE PO SCH ×2 (08:31→17:20)
[2021-10-31] MEDS: risperiDONE 1 MG TABLET PO SCH ×3 (08:31→21:26)
[2021-10-31] MEDS: POTASSIUM CHLORIDE 20 MEQ TAB.PRT.SR PO SCH (08:31)
[2021-10-31] MEDS: METOPROLOL TARTRATE 25 MG TABLET PO SCH ×3 (08:32→20:50)
[2021-10-31] MEDS: APIXABAN 5 MG TABLET PO SCH ×2 (08:34→17:21)
--- NOTE | 2021-10-31 09:43 | NUR ---
PIEDAD Family Contact: PIEDAD contacted pt's ex- Jaxson ([phone]) and left a detailed voicemail that pt will be discharged WednesdayNovember 03 to [facility].
[2021-10-31 16:00] VITALS: BP 132/69
[2021-10-31 20:00] VITALS: BP 124/67
[2021-10-31] MEDS: SENNOSIDES 8.6 MG TABLET PO SCH (21:26)
[2021-10-31] MEDS: TAMSULOSIN 0.4 MG CAP.SR.24H PO SCH (21:26)
[2021-11-01] MEDS: LORAZEPAM 0.5 MG TABLET PO PRN ×2 (07:31→14:28)
[2021-11-01 08:00] VITALS: BP 136/74
[2021-11-01] MEDS: POLYETHYLENE GLYCOL 3350 17 GM POWD.PACK PO SCH ×2 (08:44→16:33)
[2021-11-01] MEDS: DOCUSATE SODIUM 100 MG CAPSULE PO SCH ×2 (08:44→16:32)
[2021-11-01] MEDS: RIVASTIGMINE TARTRATE 1.5 MG CAPSULE PO SCH ×2 (08:44→16:33)
[2021-11-01] MEDS: FUROSEMIDE 40 MG TABLET PO SCH (08:45)
[2021-11-01] MEDS: MULTIVITAMINS,THERAGRAN 1 UDTAB TABLET PO SCH (08:45)
[2021-11-01] MEDS: POTASSIUM CHLORIDE 20 MEQ TAB.PRT.SR PO SCH (08:45)
[2021-11-01] MEDS: risperiDONE 1 MG TABLET PO SCH ×2 (08:45→20:41)
[2021-11-01] MEDS: BACLOFEN (10 MG) 10 MG TABLET PO SCH ×2 (08:45→16:32)
[2021-11-01] MEDS: FAMOTIDINE (20 MG) 20 MG TABLET PO SCH (08:45)
[2021-11-01] MEDS: METOPROLOL TARTRATE 25 MG TABLET PO SCH ×2 (08:46→20:41)
[2021-11-01] MEDS: APIXABAN 5 MG TABLET PO SCH ×2 (08:46→16:33)
[2021-11-01] MEDS: HYDROCORTISONE 1% CREAM 28.35 GM TUBE TP SCH ×2 (08:47→16:33)
--- NOTE | 2021-11-01 09:00 | NUR ---
RECEIVED PATIENT RESTING IN THE ROOM NO S/S DISTRESS NOTED AT THIS TIME DENIES SI/HI AVH. DENIED PAIN AND DISCOMFORTS..ALL NEEDS ATTENDED AND ANTICIPATED. WILL CONTINUE MONITORING FOR SAFETY AND BEHAVIOR Q 15 MIN
[2021-11-01 16:00] VITALS: BP 122/78
[2021-11-01 20:18] VITALS: BP 153/73
[2021-11-01] MEDS: TAMSULOSIN 0.4 MG CAP.SR.24H PO SCH (21:37)
[2021-11-01] MEDS: SENNOSIDES 8.6 MG TABLET PO SCH (21:37)
--- NOTE | 2021-11-02 06:08 | NUR ---
RN NOTES: PATIENT RESTING HIS ROOM, DISORGANIZED, PARANOID, COMPLIANT WITH NIGHT MEDS . NO S/S OF DISTRESS. SAFETY PRECAUTIONS IN PLACED , ENCOURAGED PT. TO VERBALIZED ANY FEELING OR CONCERN. ALL NEEDS ATTENDED AND ANTICIPATED, WILL CONTINUE TO MONITOR Q15 FOR MOOD, SAFETY AND BEHAVIOR.
[2021-11-02 08:00] VITALS: BP 128/76
[2021-11-02] MEDS: MULTIVITAMINS,THERAGRAN 1 UDTAB TABLET PO SCH (08:37)
[2021-11-02] MEDS: HYDROCORTISONE 1% CREAM 28.35 GM TUBE TP SCH ×2 (08:37→17:36)
[2021-11-02] MEDS: POLYETHYLENE GLYCOL 3350 17 GM POWD.PACK PO SCH ×2 (08:37→17:38)
[2021-11-02] MEDS: RIVASTIGMINE TARTRATE 1.5 MG CAPSULE PO SCH ×2 (08:37→17:38)
[2021-11-02] MEDS: DOCUSATE SODIUM 100 MG CAPSULE PO SCH ×2 (08:39→17:38)
[2021-11-02] MEDS: FAMOTIDINE (20 MG) 20 MG TABLET PO SCH (08:39)
[2021-11-02] MEDS: BACLOFEN (10 MG) 10 MG TABLET PO SCH ×2 (08:39→17:38)
[2021-11-02] MEDS: risperiDONE 1 MG TABLET PO SCH ×2 (08:39→21:10)
[2021-11-02] MEDS: APIXABAN 5 MG TABLET PO SCH ×2 (08:39→17:52)
[2021-11-02] MEDS: METOPROLOL TARTRATE 25 MG TABLET PO SCH ×2 (08:40→21:10)
[2021-11-02] MEDS: POTASSIUM CHLORIDE 20 MEQ TAB.PRT.SR PO SCH (08:40)
[2021-11-02] MEDS: FUROSEMIDE 40 MG TABLET PO SCH (08:54)
--- NOTE | 2021-11-02 14:07 | NUR ---
GPS/RN RECEIVED PATIENT RESTING IN THE ROOM NO S/S DISTRESS NOTED AT THIS TIME DENIES SI/HI AVH. DENIED PAIN AND DISCOMFORTS. DAILY MEDS COMPLIANT. ALL NEEDS ATTENDED AND ANTICIPATED. WILL CONTINUE MONITORING FOR SAFETY AND BEHAVIOR Q 15 MIN
[2021-11-02 16:00] VITALS: BP 105/56
--- NOTE | 2021-11-02 19:15 | NUR ---
GPS RN NOTES PATIENT IN THE DINING ROOM SITTING IN A SENDY CHAIR. ALERT AND ORIENTED X1. NO S/S OF ACUTE DISTRESS NOTED. PATIENT REMAINS CONFUSED, ANXIOUS, MED COMPLIANT AND COOPERATIVE TO CARE. NO AGITATION NOTED. SAFETY PRECAUTIONS IN PLACE. WILL CONTINUE TO MONITOR Q15MIN ROUNDS FOR SAFETY AND BEHAVIOR.
[2021-11-02 20:02] VITALS: BP 143/73
--- NOTE | 2021-11-02 20:05 | NUR ---
GPS RN NOTES PATIENT REFUSED WEEKLY SKIN BODY ASSESSMENT.
[2021-11-02] MEDS: TAMSULOSIN 0.4 MG CAP.SR.24H PO SCH (21:09)
[2021-11-02] MEDS: SENNOSIDES 8.6 MG TABLET PO SCH (21:10)
[2021-11-02] MEDS: ZOLPIDEM TARTRATE 5 MG TABLET PO PRN (23:10)
[2021-11-03] MEDS: ZOLPIDEM TARTRATE 5 MG TABLET PO PRN (00:13)
[2021-11-03 08:00] VITALS: BP 112/59
--- NOTE | 2021-11-03 08:08 | NUR ---
SW Discharge Note: Patient will be discharged to prison facility [facility] [address], [place] [address]; ). Please arrange transportation at 1PM. [employer] spoke with Oumou prints and drawings curator at [facility]; ([phone], who stated patient will be accepted today. Patients ex- Jaxson JENKINS ([phone]) is aware and agreeable of dc. Patient is alert and oriented x1 and is unable to plan for self-care. Patient denies any suicidal or homicidal ideations. Patient is aware and agreeable with discharge plans. Patient will continue to follow-up with her (Psychiatrist) located at [address], [place] [address]; ([phone]) and (cloth winder) Dr. Abad [address], [place] [address]; ([phone]). Patient presents with euthymic and congruent mood.
[2021-11-03] MEDS: MULTIVITAMINS,THERAGRAN 1 UDTAB TABLET PO SCH (09:11)
[2021-11-03 09:12] VITALS: BP 112/59
[2021-11-03] MEDS: METOPROLOL TARTRATE 25 MG TABLET PO SCH (09:12)
[2021-11-03] MEDS: HYDROCORTISONE 1% CREAM 28.35 GM TUBE TP SCH (09:13)
[2021-11-03] MEDS: APIXABAN 5 MG TABLET PO SCH (09:13)
[2021-11-03] MEDS: POTASSIUM CHLORIDE 20 MEQ TAB.PRT.SR PO SCH (09:14)
[2021-11-03] MEDS: FAMOTIDINE (20 MG) 20 MG TABLET PO SCH (09:14)
[2021-11-03] MEDS: DOCUSATE SODIUM 100 MG CAPSULE PO SCH (09:14)
[2021-11-03] MEDS: RIVASTIGMINE TARTRATE 1.5 MG CAPSULE PO SCH (09:14)
[2021-11-03] MEDS: FUROSEMIDE 40 MG TABLET PO SCH (09:14)
[2021-11-03] MEDS: BACLOFEN (10 MG) 10 MG TABLET PO SCH (09:14)
[2021-11-03] MEDS: risperiDONE 1 MG TABLET PO SCH (09:14)
[2021-11-03] MEDS: POLYETHYLENE GLYCOL 3350 17 GM POWD.PACK PO SCH (09:15)
--- NOTE | 2021-11-03 13:35 | NUR ---
CERTIFIED FLEX ENDOSCOPE REPROCESSOR NOTES PATIENT DISCHARGE TO [facility] IN STABLE CONDITION.REPORT GIVEN TO EVI FELIX OF [facility]. NO ACUTE DISTRESS NOTED, BREATHING UNLABORED. PATIENT DENIED SI/HI/AVH. PATIENT REFUSED BODY CHECK AND PHOTO TAKEN, RISK AND BENEFITS EXPLAINED.ALL BELONGINGS ACCOUNTED FOR. PATIENT WILL FOLLOW UP WITH DR. ARREAGA AND . PICKED UP VIA AMBULANCE IN A GURNEY ACCOMPANIED BY 2 EMT PERSONNEL IN STABLE CONDITION.
== END 2021-11-03 13:35 | DRG 885 ==
LOC: ER 04:30 → GPS 14:03
PROVIDERS: ADMIT Psychiatry & Neurology Psychiatry; ATTEND Student in an Organized Health Care Education/Training Program
DX: F29 Unspecified psychosis not due to a substance or known physiological condition (principal); N17.0 Acute kidney failure with tubular necrosis; D68.59 Other primary thrombophilia; E44.1 Mild protein-calorie malnutrition; D64.9 Anemia, unspecified; E87.6 Hypokalemia; E88.09 Other disorders of plasma-protein metabolism, not elsewhere classified; N40.0 Benign prostatic hyperplasia without lower urinary tract symptoms; I10 Essential (primary) hypertension; Z88.8 Allergy status to other drugs, medicaments and biological substances; Z91.018 Allergy to other foods; Z79.01 Long term (current) use of anticoagulants
CPT/HCPCS: 36415; 71045-TC; 76770-TC; 80048-TC; 80053-TC; 80061-TC; 80076-TC; 83735-TC; 84100-TC; 84443-TC; 84484-TC; 85025-TC; 85730-TC; 87081-TC; C9803; G0480; J1200; J1630; J2060; J3490; Q0163